=== PATIENT | female | born 1970 | race Asian ===

== ENCOUNTER 2016-12-23 13:04 | Outpatient (CLI) | payer OTHER ==
[2016-12-23 19:25] LABS: FERRITIN 32.3 ng/mL (11.0-306.8); TOTAL T3 0.79 ng/mL (0.87-1.78)
[2016-12-23 19:36] LABS: THYROID STIMULATING HORMONE 0.4 uIU/mL (0.34-5.60)
[2016-12-23 19:59] LABS: HEMOGLOBIN A1C 0.61 g/dL
[2016-12-26 16:01] LABS: T3 REVERSE 14 ng/dL (8-25)
== END 2016-12-23 13:05 | disposition home or self-care (01) ==
LOC: LAB.F 13:04
PROVIDERS: ATTEND Family Medicine
DX: E03.9 Hypothyroidism, unspecified (principal); R53.83 Other fatigue; E55.9 Vitamin D deficiency, unspecified; R73.09 Other abnormal glucose
CPT/HCPCS: 36415; 82306; 82626; 82728; 83036; 84439; 84443; 84480; 84481; 84482

== ENCOUNTER 2017-03-19 13:47 | Outpatient (CLI) | payer OTHER ==
[2017-03-19 18:29] LABS: HEMOGLOBIN A1C 0.57 g/dL; THYROID STIMULATING HORMONE 0.42 uIU/mL (0.34-5.60)
[2017-03-19 18:34] LABS: TOTAL T3 0.94 ng/mL (0.87-1.78)
[2017-03-19 18:35] LABS: FERRITIN 39.5 ng/mL (11.0-306.8)
== END 2017-03-19 13:48 | disposition home or self-care (01) ==
LOC: LAB.F 13:47
PROVIDERS: ATTEND Family Medicine
DX: E03.9 Hypothyroidism, unspecified (principal); R53.83 Other fatigue; D64.9 Anemia, unspecified; R73.09 Other abnormal glucose
CPT/HCPCS: 36415; 82626; 82728; 83036; 84439; 84443; 84480; 84481; 84482